=== PATIENT | male | born 1995 | race African-American/Black ===

== ENCOUNTER 2017-04-09 19:39 | Emergency (ER) | payer OTHER ==
[~2017-04-09 19:39] MED LIST: ALBU0.086 INH; DUONI NEB; MOTR200T PO; VENTAER INH; ZITH250T PO
[2017-04-09 19:41] VITALS: BP 162/91; PULSE 76; RESP 18; TEMP 98.4; O2SAT 98
--- NOTE | 2017-04-09 20:09 | PD ---
HPI Chief Complaint: Laceration/Skin Injury Time Seen by Provider: 19:54 Travel History International Travel<30 days: No Contact w/Intl Traveler<30days: No Traveled to known affect area: No History of Present Illness HPI occurred this am when he scraped his right forearm against a irma piece of metal...per patient area was bleeding initially but it's not any longer.....no alleviating/aggravating factors... denies any assoc factors such as fever/rash/ active bleeding/n/v/d/cough/cp/abdpain/backpain PFSH Past Medical History ADHD: Yes Asthma: Yes Developmental Delay: No Diabetes: No Diminished Hearing: No Genitourinary: Yes (ENEURESIS) Immunizations Current: Yes Pneumonia: Yes (1996,2002) Past Surgical History Surgical History: No Previous Surgery Genitourinary Surgery: Yes (UNDECENDED TESTICLE REPAIRED) Other Surgery: Yes (UNDESENDED TESTICLE) Social History Alcohol Use: No Tobacco Use: No Substance Use: No Allergies-Medications (Allergen,Severity, Reaction): Coded Allergies: No Known Allergies (Verified Adverse Reaction, Unknown, 04/09/17) Reported Meds & Prescriptions Reported Meds & Active Scripts Active Zithromax Z-Kun (Azithromycin) 250 Mg Tab 250 Mg PO DIRECTED 5 Days 500 MG (2 TABLETS) PO ON DAY 1, THEN 250 MG (1 TABLET) PO ON DAYS 2 TO 5. Proventil Ud 0.083% (2.5 Mg/3 Ml) (Albuterol Sulfate) 2.5 Mg/3 Ml Inha 2.5 Mg INH Q4 Reported Resp: Albuterol/Ipratropium 2.5 Mg/0.5 Mg (Albuterol/Ipratropium) 1 Amp Nebu 1 Amp NEB DIRECTED Ibu-200 (Ibuprofen Micronized) 200 Mg Tab 200 Mg PO DIRECTED Ventolin Hfa (Albuterol Sulfate) 18 Gm Aero 0 INH DIRECTED UNKNOWN DOSE Review of Systems Except as stated in HPI: all other systems reviewed are Neg General / Constitutional: No: Fever Eyes: No: Visual changes HENT: No: Headaches Cardiovascular: No: Chest Pain or Discomfort Respiratory: No: Shortness of Breath Gastrointestinal: No: Abdominal Pain Genitourinary: No: Dysuria Musculoskeletal: No: Pain Skin: Positive Other (abrasion to right forearm), No Rash Neurologic: No: Weakness Psychiatric: No: Depression Endocrine: No: Polydipsia Hematologic/Lymphatic: No: Easy Bruising Physical Exam Narrative GENERAL: SKIN: Warm and dry. rt mid forearm has abrasion without open lacerations or streaking,...also no lad, no induration. HEAD: Atraumatic. Normocephalic. EYES: Pupils equal and round. No scleral icterus. No injection or drainage. ENT: No nasal bleeding or discharge. Mucous membranes pink and moist. NECK: Trachea midline. No JVD. CARDIOVASCULAR: Regular rate and rhythm. RESPIRATORY: No accessory muscle use. Clear to auscultation. Breath sounds equal bilaterally. GASTROINTESTINAL: Abdomen soft, non-tender, nondistended. MUSCULOSKELETAL: Extremities without clubbing, cyanosis, or edema. No obvious deformities. NEUROLOGICAL: Awake and alert. No obvious cranial nerve deficits. Motor grossly within normal limits. Five out of 5 muscle strength in the arms and legs. Normal speech. PSYCHIATRIC: Appropriate mood and affect; insight and judgment normal. Data Data Last Documented VS Vital Signs Date Time Temp Pulse Resp B/P (MAP) Pulse Ox O2 Delivery O2 Flow Rate FiO2 04/09/17 19:41 98.4 76 18 162/91 (114) 98 Orders Orders Tetanus/Diphtheria Tox Adult (Tetanus/Di (04/09/17 20:15) Ed Discharge Order (04/09/17 20:15) [facility] Medical Decision Making Medical Screen Exam Complete: Yes Emergency Medical Condition: Yes Medical Record Reviewed: Yes Differential Diagnosis abrasion v laceration v cellulitis Narrative Course patient states that he is not up to ddate with tetanus Diagnosis Primary Impression: abrasion rt forearm Patient Instructions: Abrasion (ED), General Instructions Disposition: 01 DISCHARGE HOME Condition: Stable Sher Montoya MD Apr 09, 2017 20:09
[2017-04-09] MEDS ORDERED: TETANUS/DIPHTHERIA TOXOID ADULT 0.5 ML VIAL IM ONE (20:15)
== END 2017-04-09 20:22 | disposition home or self-care (01) ==
LOC: NEPD 19:39
DX: S50.811A Abrasion of right forearm, initial encounter (principal); J45.909 Unspecified asthma, uncomplicated; W22.8XXA Striking against or struck by other objects, initial encounter; Z23 Encounter for immunization
CPT/HCPCS: 90471; 90714